=== PATIENT | male | born 1975 | race Caucasian/White ===

== ENCOUNTER 2021-10-27 14:45 | Inpatient (IN) | payer OTHER ==
[2021-10-27 16:34] LABS: BASO % 0.7 % (0-2.0); EOS % 6.5 % (0-4.5); HEMATOCRIT 34.4 % (35.4-49); HEMOGLOBIN 11.7 GM/dL (11.7-16.9); LYMPH % 38.9 % (8-40); MCH 29.2 pg (25.7-33.7); MCHC 33.9 g/dl (32.0-35.9); MEAN CELL VOLUME 85.9 fl (80-96); MEAN PLT VOLUME 6.8 fl (7.5-11.1); MONO % 7.4 % (3.8-10.2); NEUT % 46.5 % (42.8-82.8); PLATELET COUNT 443 10^3/uL (134-434); RDW 17.3 % (11.9-15.9); WHITE BLOOD COUNT 6.5 K/mm3 (4.0-10.0)
[2021-10-27 16:37] LABS: URINE APPEARANCE CLEAR; URINE BILIRUBIN 2+ (NEGATIVE); URINE COLOR DK YELLOW; URINE GLUCOSE (UA) NEGATIVE (NEGATIVE); URINE KETONE NEGATIVE (NEGATIVE); URINE LEUK ESTERASE NEGATIVE (NEGATIVE); URINE NITRITE NEGATIVE (NEGATIVE); URINE PROTEIN NEGATIVE (NEGATIVE); URINE UROBILINOGEN 0.2 mg/dL (0.2-1.0)
[2021-10-27 16:53] LABS: CALCIUM 9.1 mg/dL (8.5-10.1)
[2021-10-27 16:54] LABS: ALBUMIN 2.8 g/dl (3.4-5.0); BLOOD UREA NITROGEN 13.9 mg/dL (7-18); MAGNESIUM 1.7 mg/dL (1.8-2.4)
[2021-10-27 16:56] LABS: BILIRUBIN,DIRECT 5.3 mg/dL (0.0-0.2); CREATININE 0.9 mg/dL (0.55-1.3)
[2021-10-27 16:58] LABS: BILIRUBIN,TOTAL 6.5 mg/dL (0.2-1); TOT PROT 7.6 g/dl (6.4-8.2)
[2021-10-27] MEDS ORDERED: WATER IVPB ONE ×4 (17:01→19:00)
[2021-10-27] MEDS ORDERED: DEXTROSE 5% IVPB ONE ×4 (17:01→19:00)
[2021-10-27] MEDS ORDERED: ACETYLCYSTEINE IVPB ONE ×4 (17:01→19:00)
[2021-10-27] MEDS ORDERED: ACETYLCYSTEINE INJECTION 20% 7,500 MG in DEXTROSE 5%-WATER - 1,000 ML IVPB ONE ×2 (17:02→23:00)
[2021-10-27] MEDS ORDERED: hydrOXYzine PAMOATE 50 MG CAPSULE (FP) PO ONE (17:21)
[2021-10-27 17:36] LABS: ANISOCYTOSIS 1+; MACROCYTOSIS 1+
[2021-10-27 17:42] LABS: PLATELET ESTIMATE ADEQUATE
[2021-10-27 17:48] LABS: INR 1.27 (0.83-1.09); PROTHROMBIN TIME (PATIENT) 14.6 SEC (9.7-13.0)
[2021-10-27 17:51] LABS: ACTIVATED PTT 32.7 SECONDS (25.2-36.5)
[2021-10-27] MEDS ORDERED: BUPRENORPHINE/NALOXONE 2 MG/0.5 MG FILM PACKET ONE ×2 (18:21→23:06)
[2021-10-27] MEDS ORDERED: hydrOXYzine PAMOATE 50 MG CAPSULE (FP) ONE (18:21)
[2021-10-27] MEDS: BUPRENORPHINE/NALOXONE 2 MG/0.5 MG FILM PACKET SL SCH ×2 (18:25→23:00)
[2021-10-27] MEDS ORDERED: methylPREDNISolone NA SUCC 125 MG/2 ML VIAL IVPUSH ONE (18:42)
[2021-10-27] MEDS ORDERED: hydrOXYzine PAMOATE 25 MG CAPSULE (FP) PO PRN (19:05)
[2021-10-27] MEDS ORDERED: CYCLOBENZAPRINE HCL 10 MG TABLET (FP) PO PRN (19:09)
[2021-10-27] MEDS ORDERED: methylPREDNISolone NA SUCC 125 MG/2 ML VIAL ONE (20:35)
[2021-10-27] MEDS: HEPARIN NA (PORCINE) 5,000 UNITS/ML 1ML VIAL SQ SCH (23:00)
[2021-10-27] MEDS ORDERED: methylPREDNISolone NA SUCC 125 MG/2 ML VIAL IVPB ONE (23:45)
[2021-10-28 00:04] VITALS: BMI 20.5
[2021-10-28] MEDS: TRIAMCINOLONE ACET 0.1% OINT 15 GM TUBE TP SCH ×3 (00:48→22:43)
[2021-10-28] MEDS ORDERED: methylPREDNISolone NA SUCC 125 MG/2 ML VIAL ONE (00:51)
[2021-10-28] MEDS: HEPARIN NA (PORCINE) 5,000 UNITS/ML 1ML VIAL SQ SCH ×3 (06:20→21:44)
[2021-10-28 07:09] LABS: BASO % 0.4 % (0-2.0); EOS % 0.5 % (0-4.5); HEMATOCRIT 35.5 % (35.4-49); HEMOGLOBIN 11.9 GM/dL (11.7-16.9); LYMPH % 31.7 % (8-40); MCHC 33.6 g/dl (32.0-35.9); MEAN CELL VOLUME 86.2 fl (80-96); MEAN PLT VOLUME 7.2 fl (7.5-11.1); MONO % 2.3 % (3.8-10.2); NEUT % 65.1 % (42.8-82.8); PLATELET COUNT 442 10^3/uL (134-434); RBC 4.11 M/mm3 (4.00-5.60); RDW 17.5 % (11.9-15.9); WHITE BLOOD COUNT 5.2 K/mm3 (4.0-10.0)
[2021-10-28 07:11] LABS: INR 1.38 (0.83-1.09); PROTHROMBIN TIME (PATIENT) 15.9 SEC (9.7-13.0)
[2021-10-28 07:35] LABS: ALBUMIN 2.6 g/dl (3.4-5.0); CALCIUM 9.3 mg/dL (8.5-10.1)
[2021-10-28 07:36] LABS: BLOOD UREA NITROGEN 11.6 mg/dL (7-18)
[2021-10-28 07:39] LABS: CREATININE 0.8 mg/dL (0.55-1.3); PHOSPHOROUS 3.3 mg/dL (2.5-4.9)
[2021-10-28 07:40] LABS: BILIRUBIN,TOTAL 7.1 mg/dL (0.2-1); TOT PROT 7.5 g/dl (6.4-8.2)
[2021-10-28] MEDS: SERTRALINE HCL 25 MG TABLET (FP) PO SCH (09:34)
[2021-10-28] MEDS: BUPRENORPHINE/NALOXONE 2 MG/0.5 MG FILM PACKET SL SCH ×4 (09:34→22:33)
[2021-10-28] MEDS: THIAMINE HCL 100 MG TABLET (FP) PO SCH (09:34)
[2021-10-28] MEDS: methylPREDNISolone NA SUCC 125 MG/2 ML VIAL IVPUSH SCH (09:34)
[2021-10-28] MEDS: CLINDAMYCIN 900 MG PREMIX IVPB 900 MG/50 ML BAG IVPB SCH ×2 (15:24→22:33)
[2021-10-28] MEDS ORDERED: CYCLOBENZAPRINE HCL 10 MG TABLET (FP) PO SCH (22:00)
[2021-10-28] MEDS: MAGNESIUM 1GM/D5W 100ML - 100 ML IVPB IVPB SCH ×2 (22:25→23:01)
[2021-10-28] MEDS ORDERED: MAGNESIUM SULF 50% (8.12 MEQ/2 ML-1 GM VIAL) IVPB ONE (22:30)
[2021-10-28] MEDS: CYCLOBENZAPRINE HCL 10 MG TABLET (FP) PO PRN (22:33)
[2021-10-29] MEDS: HEPARIN NA (PORCINE) 5,000 UNITS/ML 1ML VIAL SQ SCH ×3 (05:51→22:03)
[2021-10-29] MEDS: CLINDAMYCIN 900 MG PREMIX IVPB 900 MG/50 ML BAG IVPB SCH ×3 (06:22→22:00)
[2021-10-29 08:17] LABS: BASO % 0.3 % (0-2.0); EOS % 0.2 % (0-4.5); HEMATOCRIT 34.5 % (35.4-49); HEMOGLOBIN 11.4 GM/dL (11.7-16.9); LYMPH % 21.6 % (8-40); MEAN CELL VOLUME 87.9 fl (80-96); MEAN PLT VOLUME 7.6 fl (7.5-11.1); MONO % 7.1 % (3.8-10.2); NEUT % 70.8 % (42.8-82.8); PLATELET COUNT 436 10^3/uL (134-434); RBC 3.92 M/mm3 (4.00-5.60); RDW 18.1 % (11.9-15.9); WHITE BLOOD COUNT 11.2 K/mm3 (4.0-10.0)
[2021-10-29 08:24] LABS: INR 1.15 (0.83-1.09); PROTHROMBIN TIME (PATIENT) 13.2 SEC (9.7-13.0)
[2021-10-29 08:38] LABS: ALBUMIN 2.5 g/dl (3.4-5.0); BLOOD UREA NITROGEN 17.9 mg/dL (7-18); CALCIUM 8.5 mg/dL (8.5-10.1)
[2021-10-29 08:41] LABS: CREATININE 0.9 mg/dL (0.55-1.3); PHOSPHOROUS 3.4 mg/dL (2.5-4.9)
[2021-10-29 08:43] LABS: BILIRUBIN,TOTAL 4.6 mg/dL (0.2-1); TOT PROT 7.1 g/dl (6.4-8.2)
[2021-10-29] MEDS: THIAMINE HCL 100 MG TABLET (FP) PO SCH (09:15)
[2021-10-29] MEDS: SERTRALINE HCL 25 MG TABLET (FP) PO SCH (09:15)
[2021-10-29] MEDS: BUPRENORPHINE/NALOXONE 2 MG/0.5 MG FILM PACKET SL SCH ×4 (09:15→21:59)
[2021-10-29] MEDS: CYCLOBENZAPRINE HCL 10 MG TABLET (FP) PO PRN ×2 (09:15→18:19)
[2021-10-29] MEDS: TRIAMCINOLONE ACET 0.1% OINT 15 GM TUBE TP SCH ×2 (09:16→22:03)
[2021-10-29] MEDS: methylPREDNISolone NA SUCC 125 MG/2 ML VIAL IVPUSH SCH (09:24)
[2021-10-29 09:52] LABS: MAGNESIUM 2.3 mg/dL (1.8-2.4)
[2021-10-30] MEDS: HEPARIN NA (PORCINE) 5,000 UNITS/ML 1ML VIAL SQ SCH ×3 (06:16→21:10)
[2021-10-30] MEDS: CLINDAMYCIN 900 MG PREMIX IVPB 900 MG/50 ML BAG IVPB SCH ×3 (06:21→22:18)
[2021-10-30] MEDS: BUPRENORPHINE/NALOXONE 2 MG/0.5 MG FILM PACKET SL SCH ×4 (10:00→21:10)
[2021-10-30] MEDS: methylPREDNISolone NA SUCC 125 MG/2 ML VIAL IVPUSH SCH (10:00)
[2021-10-30] MEDS: SERTRALINE HCL 25 MG TABLET (FP) PO SCH (10:01)
[2021-10-30] MEDS: TRIAMCINOLONE ACET 0.1% OINT 15 GM TUBE TP SCH ×2 (10:01→21:10)
[2021-10-30] MEDS: THIAMINE HCL 100 MG TABLET (FP) PO SCH (10:03)
[2021-10-30] MEDS ORDERED: POLYETHYLENE GLYCOL (HEALTHYLAX) 3350 17 GM PACKET PO PRN (11:07)
[2021-10-30] MEDS ORDERED: MELATONIN 5 MG, MELATONIN 1 MG PO PRN (11:10)
[2021-10-30 11:19] LABS: BASO % 0.6 % (0-2.0); EOS % 0.6 % (0-4.5); HEMATOCRIT 36.9 % (35.4-49); HEMOGLOBIN 12.5 GM/dL (11.7-16.9); MCH 29.2 pg (25.7-33.7); MCHC 33.9 g/dl (32.0-35.9); MEAN CELL VOLUME 86.2 fl (80-96); MEAN PLT VOLUME 7.4 fl (7.5-11.1); MONO % 8.1 % (3.8-10.2); NEUT % 55.7 % (42.8-82.8); PLATELET COUNT 487 10^3/uL (134-434); RBC 4.28 M/mm3 (4.00-5.60); RDW 18.5 % (11.9-15.9); WHITE BLOOD COUNT 9.9 K/mm3 (4.0-10.0)
[2021-10-30 11:22] LABS: INR 1.15 (0.83-1.09); PROTHROMBIN TIME (PATIENT) 13.2 SEC (9.7-13.0)
[2021-10-30 11:58] LABS: ALBUMIN 2.9 g/dl (3.4-5.0)
[2021-10-30 12:00] LABS: BILIRUBIN,DIRECT 2.6 mg/dL (0.0-0.2)
[2021-10-30 12:03] LABS: BILIRUBIN,TOTAL 3.4 mg/dL (0.2-1); TOT PROT 7.9 g/dl (6.4-8.2)
[2021-10-30 12:10] LABS: CALCIUM 9.4 mg/dL (8.5-10.1)
[2021-10-30 12:13] LABS: CREATININE 0.9 mg/dL (0.55-1.3); PHOSPHOROUS 4.1 mg/dL (2.5-4.9)
[2021-10-30] MEDS: ARTIFICIAL TEARS (POLYVINYL ALCOHOL) OPTH DROPS OU SCH ×3 (14:13→21:11)
[2021-10-30] MEDS: CYCLOBENZAPRINE HCL 10 MG TABLET (FP) PO PRN (17:36)
[2021-10-30] MEDS ORDERED: MELATONIN 5 MG TABLETS ONE (21:06)
[2021-10-30] MEDS ORDERED: MELATONIN 1 MG TABLET ONE (21:06)
[2021-10-30] MEDS: MELATONIN 5 MG, MELATONIN 1 MG PO SCH (21:10)
[2021-10-30] MEDS: SENNOSIDES 8.6MG TABLET (FP) PO SCH (21:10)
[2021-10-30] MEDS ORDERED: DOCUSATE SODIUM 100 MG CAPSULE (FP) PO SCH (22:00)
[2021-10-30] MEDS ORDERED: PATIENT'S OWN MEDICATION (NON-FORMULARY) (Melatonin [Melatonin] 3 MG Tablet) PO SCH (22:00)
[2021-10-31] MEDS: HEPARIN NA (PORCINE) 5,000 UNITS/ML 1ML VIAL SQ SCH ×3 (06:15→22:14)
[2021-10-31] MEDS: CLINDAMYCIN 900 MG PREMIX IVPB 900 MG/50 ML BAG IVPB SCH ×3 (06:15→22:13)
[2021-10-31 07:07] LABS: BASO % 0.5 % (0-2.0); EOS % 0.3 % (0-4.5); HEMATOCRIT 34.9 % (35.4-49); HEMOGLOBIN 11.9 GM/dL (11.7-16.9); LYMPH % 31.8 % (8-40); MCH 29.3 pg (25.7-33.7); MEAN CELL VOLUME 86.1 fl (80-96); MONO % 11.2 % (3.8-10.2); NEUT % 56.2 % (42.8-82.8); PLATELET COUNT 466 10^3/uL (134-434); RBC 4.06 M/mm3 (4.00-5.60); RDW 18.6 % (11.9-15.9); WHITE BLOOD COUNT 9.8 K/mm3 (4.0-10.0)
[2021-10-31 08:13] LABS: INR 1.25 (0.83-1.09); PROTHROMBIN TIME (PATIENT) 14.4 SEC (9.7-13.0)
[2021-10-31] MEDS ORDERED: predniSONE 20 MG TABLET (UD) ONE (09:32)
[2021-10-31] MEDS ORDERED: predniSONE 10 MG TABLET (UD) ONE (09:32)
[2021-10-31] MEDS: CYCLOBENZAPRINE HCL 10 MG TABLET (FP) PO PRN ×2 (09:36→19:01)
[2021-10-31] MEDS: BUPRENORPHINE/NALOXONE 2 MG/0.5 MG FILM PACKET SL SCH ×4 (09:37→22:14)
[2021-10-31] MEDS: predniSONE 40 MG, predniSONE 10 MG PO SCH (09:37)
[2021-10-31] MEDS: SENNOSIDES 8.6MG TABLET (FP) PO SCH ×2 (09:37→22:14)
[2021-10-31] MEDS: SERTRALINE HCL 50 MG TABLET (FP) PO SCH (09:38)
[2021-10-31] MEDS: THIAMINE HCL 100 MG TABLET (FP) PO SCH (09:38)
[2021-10-31] MEDS: TRIAMCINOLONE ACET 0.1% OINT 15 GM TUBE TP SCH ×2 (09:43→22:14)
[2021-10-31] MEDS: ARTIFICIAL TEARS (POLYVINYL ALCOHOL) OPTH DROPS OU SCH ×4 (09:43→22:14)
[2021-10-31] MEDS ORDERED: predniSONE 20 MG TABLET (UD) PO SCH (10:00)
[2021-10-31] MEDS ORDERED: POLYETHYLENE GLYCOL (HEALTHYLAX) 3350 17 GM PACKET PO SCH (10:00)
[2021-10-31] MEDS ORDERED: methylPREDNISolone NA SUCC 40 MG/1 ML VIAL IVPUSH SCH (10:00)
[2021-10-31] MEDS ORDERED: NICOTINE POLACRILEX 2 MG GUM BUC PRN (10:55)
[2021-10-31] MEDS: NICOTINE 14 MG/24 HOURS TOPICAL PATCH TD SCH ×2 (11:46→11:48)
[2021-10-31 11:47] LABS: ALBUMIN 2.9 g/dl (3.4-5.0); BLOOD UREA NITROGEN 21.7 mg/dL (7-18)
[2021-10-31 11:49] LABS: CREATININE 0.9 mg/dL (0.55-1.3)
[2021-10-31 11:51] LABS: BILIRUBIN,TOTAL 2.6 mg/dL (0.2-1); TOT PROT 7.7 g/dl (6.4-8.2)
[2021-10-31] MEDS ORDERED: MELATONIN 5 MG TABLETS ONE (21:34)
[2021-10-31] MEDS ORDERED: MELATONIN 1 MG TABLET ONE (21:34)
[2021-10-31] MEDS: MELATONIN 5 MG, MELATONIN 1 MG PO SCH (22:14)
[2021-10-31] MEDS: POLYETHYLENE GLYCOL (HEALTHYLAX) 3350 17 GM PACKET PO SCH (22:14)
[2021-11-01] MEDS: HEPARIN NA (PORCINE) 5,000 UNITS/ML 1ML VIAL SQ SCH ×3 (04:59→21:03)
[2021-11-01] MEDS: CLINDAMYCIN 900 MG PREMIX IVPB 900 MG/50 ML BAG IVPB SCH ×3 (06:02→22:00)
[2021-11-01 07:22] LABS: BASO % 0.6 % (0-2.0); EOS % 0.3 % (0-4.5); HEMATOCRIT 35.3 % (35.4-49); LYMPH % 29.2 % (8-40); MCH 29.3 pg (25.7-33.7); MCHC 34.1 g/dl (32.0-35.9); MEAN PLT VOLUME 7.1 fl (7.5-11.1); MONO % 9.6 % (3.8-10.2); NEUT % 60.3 % (42.8-82.8); PLATELET COUNT 500 10^3/uL (134-434); RDW 18.6 % (11.9-15.9); WHITE BLOOD COUNT 9.9 K/mm3 (4.0-10.0)
[2021-11-01 07:42] LABS: ALBUMIN 2.8 g/dl (3.4-5.0); CALCIUM 9.1 mg/dL (8.5-10.1)
[2021-11-01 07:46] LABS: PHOSPHOROUS 4.8 mg/dL (2.5-4.9)
[2021-11-01 07:47] LABS: CREATININE 0.8 mg/dL (0.55-1.3); TOT PROT 7.2 g/dl (6.4-8.2)
[2021-11-01] MEDS ORDERED: predniSONE 10 MG TABLET (UD) ONE (08:54)
[2021-11-01] MEDS ORDERED: predniSONE 20 MG TABLET (UD) ONE (08:54)
[2021-11-01] MEDS: predniSONE 40 MG, predniSONE 10 MG PO SCH (10:12)
[2021-11-01] MEDS: SERTRALINE HCL 50 MG TABLET (FP) PO SCH (10:14)
[2021-11-01] MEDS: SENNOSIDES 8.6MG TABLET (FP) PO SCH ×2 (10:14→21:04)
[2021-11-01] MEDS: BUPRENORPHINE/NALOXONE 2 MG/0.5 MG FILM PACKET SL SCH ×4 (10:15→21:04)
[2021-11-01] MEDS: THIAMINE HCL 100 MG TABLET (FP) PO SCH (10:15)
[2021-11-01] MEDS: NICOTINE 14 MG/24 HOURS TOPICAL PATCH TD SCH ×2 (10:17→10:24)
[2021-11-01] MEDS: TRIAMCINOLONE ACET 0.1% OINT 15 GM TUBE TP SCH ×2 (10:19→21:01)
[2021-11-01] MEDS: POLYETHYLENE GLYCOL (HEALTHYLAX) 3350 17 GM PACKET PO SCH ×2 (10:24→21:03)
[2021-11-01] MEDS ORDERED: predniSONE 10 MG TABLET (UD) PO ONE ×2 (10:29→11:00)
[2021-11-01] MEDS: ARTIFICIAL TEARS (POLYVINYL ALCOHOL) OPTH DROPS OU SCH ×4 (10:34→21:01)
[2021-11-01] MEDS: CYCLOBENZAPRINE HCL 10 MG TABLET (FP) PO PRN ×2 (11:07→21:04)
[2021-11-01 11:18] LABS: HIV INTERPRETATION NEGATIVE (NEGATIVE)
[2021-11-01] MEDS ORDERED: MELATONIN 1 MG TABLET ONE (20:54)
[2021-11-01] MEDS ORDERED: MELATONIN 5 MG TABLETS ONE (20:54)
[2021-11-01] MEDS: MELATONIN 5 MG, MELATONIN 1 MG PO SCH (21:04)
[2021-11-02] MEDS: CLINDAMYCIN 900 MG PREMIX IVPB 900 MG/50 ML BAG IVPB SCH ×3 (06:16→22:35)
[2021-11-02] MEDS: HEPARIN NA (PORCINE) 5,000 UNITS/ML 1ML VIAL SQ SCH ×3 (06:16→22:34)
[2021-11-02] MEDS: THIAMINE HCL 100 MG TABLET (FP) PO SCH (09:56)
[2021-11-02] MEDS: SENNOSIDES 8.6MG TABLET (FP) PO SCH ×2 (09:57→22:35)
[2021-11-02] MEDS: predniSONE 20 MG TABLET (UD) PO SCH (09:57)
[2021-11-02] MEDS: BUPRENORPHINE/NALOXONE 2 MG/0.5 MG FILM PACKET SL SCH ×4 (09:57→22:35)
[2021-11-02] MEDS: NICOTINE 14 MG/24 HOURS TOPICAL PATCH TD SCH (09:57)
[2021-11-02] MEDS: SERTRALINE HCL 50 MG TABLET (FP) PO SCH (09:57)
[2021-11-02] MEDS: TRIAMCINOLONE ACET 0.1% OINT 15 GM TUBE TP SCH ×2 (09:58→22:34)
[2021-11-02] MEDS: POLYETHYLENE GLYCOL (HEALTHYLAX) 3350 17 GM PACKET PO SCH ×2 (09:58→22:34)
[2021-11-02] MEDS: ARTIFICIAL TEARS (POLYVINYL ALCOHOL) OPTH DROPS OU SCH ×4 (09:58→21:35)
[2021-11-02] MEDS ORDERED: MELATONIN 1 MG TABLET ONE (21:38)
[2021-11-02] MEDS ORDERED: MELATONIN 5 MG TABLETS ONE (21:38)
[2021-11-02] MEDS: MELATONIN 5 MG, MELATONIN 1 MG PO SCH (22:34)
[2021-11-03] MEDS: HEPARIN NA (PORCINE) 5,000 UNITS/ML 1ML VIAL SQ SCH ×3 (06:35→22:33)
[2021-11-03] MEDS: CLINDAMYCIN 900 MG PREMIX IVPB 900 MG/50 ML BAG IVPB SCH ×3 (06:35→23:00)
[2021-11-03 08:10] LABS: BASO % 0.5 % (0-2.0); EOS % 0.7 % (0-4.5); HEMATOCRIT 36.9 % (35.4-49); HEMOGLOBIN 12.4 GM/dL (11.7-16.9); LYMPH % 32.1 % (8-40); MCH 29.1 pg (25.7-33.7); MCHC 33.5 g/dl (32.0-35.9); MEAN CELL VOLUME 86.8 fl (80-96); MEAN PLT VOLUME 7.3 fl (7.5-11.1); MONO % 10.5 % (3.8-10.2); NEUT % 56.2 % (42.8-82.8); PLATELET COUNT 483 10^3/uL (134-434); RBC 4.25 M/mm3 (4.00-5.60); RDW 18.3 % (11.9-15.9); WHITE BLOOD COUNT 10.5 K/mm3 (4.0-10.0)
[2021-11-03] MEDS: SENNOSIDES 8.6MG TABLET (FP) PO SCH ×2 (09:37→22:33)
[2021-11-03] MEDS: predniSONE 20 MG TABLET (UD) PO SCH (09:37)
[2021-11-03] MEDS: SERTRALINE HCL 50 MG TABLET (FP) PO SCH (09:37)
[2021-11-03] MEDS: THIAMINE HCL 100 MG TABLET (FP) PO SCH (09:37)
[2021-11-03] MEDS: NICOTINE 14 MG/24 HOURS TOPICAL PATCH TD SCH (09:38)
[2021-11-03] MEDS: POLYETHYLENE GLYCOL (HEALTHYLAX) 3350 17 GM PACKET PO SCH ×2 (09:39→22:33)
[2021-11-03] MEDS: ARTIFICIAL TEARS (POLYVINYL ALCOHOL) OPTH DROPS OU SCH ×4 (09:39→22:33)
[2021-11-03] MEDS: TRIAMCINOLONE ACET 0.1% OINT 15 GM TUBE TP SCH ×2 (09:39→22:33)
[2021-11-03] MEDS: BUPRENORPHINE/NALOXONE 2 MG/0.5 MG FILM PACKET SL SCH ×4 (09:40→22:32)
[2021-11-03] MEDS: CYCLOBENZAPRINE HCL 10 MG TABLET (FP) PO PRN (09:41)
[2021-11-03 18:10] VITALS: BP 115/72; PULSE 93; TEMP 98.5
[2021-11-03] MEDS ORDERED: MELATONIN 1 MG TABLET ONE (22:29)
[2021-11-03] MEDS ORDERED: MELATONIN 5 MG TABLETS ONE (22:30)
[2021-11-03] MEDS: MELATONIN 5 MG, MELATONIN 1 MG PO SCH (22:32)
== END 2021-11-04 03:20 | DRG 663 ==
LOC: JER 14:45 → JERBED 18:34 → J4S 23:42 → UNDODISIN 11-04 03:20
PROVIDERS: ADMIT Internal Medicine; ATTEND Internal Medicine
DX: D72.12 Drug rash with eosinophilia and systemic symptoms syndrome (principal); U07.1 COVID-19; E43 Unspecified severe protein-calorie malnutrition; E88.89 Other specified metabolic disorders; E80.6 Other disorders of bilirubin metabolism; R74.01 Elevation of levels of liver transaminase levels; T50.905A Adverse effect of unspecified drugs, medicaments and biological substances, initial encounter; Z68.20 Body mass index [BMI] 20.0-20.9, adult; K21.9 Gastro-esophageal reflux disease without esophagitis; M46.26 Osteomyelitis of vertebra, lumbar region; B19.20 Unspecified viral hepatitis C without hepatic coma; D72.829 Elevated white blood cell count, unspecified; F17.210 Nicotine dependence, cigarettes, uncomplicated; F90.9 Attention-deficit hyperactivity disorder, unspecified type; K76.0 Fatty (change of) liver, not elsewhere classified; M51.86 Other intervertebral disc disorders, lumbar region; R80.9 Proteinuria, unspecified; Z59.00 Homelessness unspecified
CPT/HCPCS: 36415; 71046-TC-FY; 74181-TC; 76705-TC; 80048; 80053; 80076; 81003; 82248; 82595; 82728; 82977; 83516; 83540; 83550; 83690; 83735; 84100; 84156; 84436; 84443; 85025; 85384; 85610; 85730; 86038; 86140; 86160; 86162; 86431; 86644; 86645; 86694; 86695; 86696; 86704; 86705; 86709; 86803; 86850; 86900; 86901; 87040; 87086; 87340; 87389; 87497; 87517; 87522; 87799; 93005; 93010; 93306-TC; 99285-25; C9803-CS; U0003; U0005

== ENCOUNTER 2021-11-23 17:12 | Emergency (ER) | payer OTHER ==
[2021-11-23 17:34] VITALS: BP 121/86; PULSE 122; TEMP 98.5; BMI 23.7
[2021-11-23 19:59] LABS: COCAINE, UR NEGATIVE (NEGATIVE); METHADONE, UR NEGATIVE (NEGATIVE); URINE AMPHETAMINES NEGATIVE (NEGATIVE)
[2021-11-23 20:00] LABS: PHENCYCLIDINE,URINE NEGATIVE (NEGATIVE); URINE BARBITURATES NEGATIVE (NEGATIVE); URINE BENZODIAZEPINES NEGATIVE (NEGATIVE)
[2021-11-23 20:01] LABS: OPIATES, URI POSITIVE (NEGATIVE)
== END 2021-11-23 20:26 ==
LOC: JERFT 17:12
DX: Z13.89 Encounter for screening for other disorder (principal)
CPT/HCPCS: 80307; 99283-25